=== PATIENT | female | born 1945 | race Caucasian/White ===

== ENCOUNTER 2017-03-31 13:14 | Inpatient (IN) | payer MEDICARE ==
[2017-03-31] VITALS (9 sets, daily range): BP systolic 137–161; BP diastolic 88–105; PULSE 82–107; RESP 15–24; O2SAT 95–100
[~2017-03-31] VITALS: Ht 160 cm; Wt 56.7 kg
--- NOTE | 2017-03-31 13:43 | ED.REPORT ---
HPI-Chest Pain 40 and Over Date of Service Mar 31, 2017 ED Provider: Stephen Shore MD Pt is a 71 year old female presenting to the ED from complaining of SOB. Associated symptoms include chest pressure, vomiting, decreased urination, generalized weakness, insomnia, and slight LE swelling. Denies cough, fever, chills, or LE pain. Symptoms are worsened at night when she lays down in bed. Increased shortness of breath with laying flat. She was recently given an inhaler, Z pack and 3 days of prednisone for restrictive airway disease from . Denies hx of CAD or blood clots. On February 08, the pt drove to [place] and back. She states that the inhaler has helped, but that she does not like using it due to side effects. Nursing Notes Stated Complaint: HEART ISSUES Chief Complaint: General Complaint Nursing Notes Reviewed: Yes Allergies: Coded Allergies: codeine (Verified Allergy, Intermediate, NAUSEA, VOMITING, 03/31/17) latex (Verified Adverse Reaction, Intermediate, RASH, ITCHING, 03/31/17) Scheduled Magnesium Oxide (Magnesium) 500 Mg Capsule 500 MG PO DAILY Multivitamin (Once Daily) 1 Each Tablet 1 EACH PO DAILY General Time Seen by MD: 13:34 Chief Complaint Shortness of breath Hx Obtained From: Patient Arrived By: Walk-in Sudden in Onset?: No Onset Occurred: Onset unknown Symptom Duration: Since onset Quality: Painful, Pressure Severity: Current: Mild Severity: Maximum: Mild Recent Healthcare: No recent hospitalization, Recent doctor visit Similar Sx Previous: No Past Medical History Past Medical History Kidney cancer in remission Osteoporosis Past Surgical History denies Smoking History Former Smoker Ambulatory Status Independent Review of Systems Constitutional: Reports: Weakness - generalized, Denies: Chills, Fever Respiratory: Reports: Shortness of breath, Denies: Non-productive cough Cardiovascular: Reports: Chest pain (Pressure) GI: Reports: Vomiting Musculoskeletal: Reports: Extremity swelling, Denies: Extremity pain Psychiatric: Reports: Insomnia Complete sys rev & neg: except as marked. Female: Reports: Urination decreased Physical Exam Initial Vital Signs Vital Signs (First) Date Time Temp Pulse Resp B/P Pulse Ox O2 Delivery O2 Flow Rate FiO2 03/31/17 13:17 36.7 107 22 161/105 100 Room Air Initial VS: Reviewed Head / Eyes: Atraumatic, Normocephalic, PERRL ENT: Mucous membranes moist, Conjunctiva normal, No scleral icterus Extremities: Vascular intact, Neuro intact, No swelling, No tenderness Skin: Warm, Dry, No cyanosis Neurologic: Alert, Oriented, Nonfocal Psychiatric: Mood/affect normal, Behavior normal, Normal thought content General/Constitutional: Awake, Alert, No acute distress, Well appearing Respiratory / Chest: Atraumatic, No respiratory distress Mild wheeze, slightly coarse breath sounds. Cardiovascular: Heart rate NL, Regular rhythm, Heart sounds NL, No gallop, No murmurs, No rubs Abdomen: Atraumatic, Soft, Non-tender Lower Extremity / Pelvis / MS: Atraumatic, Inspection NL, Full range of motion , No swelling, Non-tender, No deformity, Neurologic intact, Vascular intact, No edema Interpretation & Diagnostics Lab Results Interpretation Result Diagram: 03/31/17 1440 03/31/17 1440 Test 03/31/17 14:40 White Blood Count 5.1th/mm3 (3.8-10.1) Red Blood Count 3.86mil/mm3 (3.90-5.20) Hemoglobin 12.1g/dL (12.0-15.6) Hematocrit 35.1% (35.0-46.0) Mean Corpuscular Volume 90.9fL (81-100) Mean Corpuscular Hemoglobin 31.3pg (27.0-35.0) Mean Corpuscular Hemoglobin Concent 34.5% (32.0-37.0) Red Cell Distribution Width 13.3% (12.3-15.4) Platelet Count 154bil/L (150-400) Neutrophils (%) (Auto) 71.8% (40-74) Lymphocytes (%) (Auto) 21.2% (14-46) Monocytes (%) (Auto) 6.2% (4-12) Eosinophils (%) (Auto) 0.4% (0-5) Basophils (%) (Auto) 0.2% (0-3) D-Dimer < 0.50mg/L FEU (<0.50) Sodium Level 131mEq/L (134-144) Potassium Level 3.6mEq/L (3.5-5.2) Chloride Level 92mEq/L (97-108) Carbon Dioxide Level 21mmol/L (18-29) Blood Urea Nitrogen 17mg/dL (8-27) Creatinine 0.91mg/dL (0.57-1.00) Estimat Glomerular Filtration Rate 88mL/min (>59) Glucose Level 157mg/dL (60-99) Calcium Level 9.5mg/dL (8.5-10.1) Magnesium Level 1.5mg/dL (1.6-2.6) Total Bilirubin 0.8mg/dL (0.0-1.2) Aspartate Amino Transf (AST/SGOT) 83U/L (0-50) Alanine Aminotransferase (ALT/SGPT) 63U/L (0-32) Alkaline Phosphatase 67U/L (25-165) Troponin T < 0.010ug/L (0.0-0.011) Pro-B-Type Natriuretic Peptide 6348pg/mL (0-301) Total Protein 7.5g/dL (6.4-8.4) Albumin 4.1g/dL (3.4-5.0) Hold Ramirez Top Tube Received (Received) ECG Interpretation ECG Interpretation: Sinus tachycardia at 101. Mild left axis deviation. No ST segment elevations. No T wave abnormalities. No prior EKG for comparison. Time: 15:08 Interpreted by: ED physician X-Ray Chest Interpretation Chest Xray Interpretation: IMPRESSION: Blunting of the right costophrenic angle suggestive of scarring versus trace effusion. 9 mm nodular opacity is present within the right base as above. The latter is overall nonspecific and does not appear to be present on 03/15/17 exam. This could represent an area of focal fluid or developing airspace disease. Recommend interval followup is documented resolution. Dictated by: Nataliya Chung M.D. on 03/31/2017 at 14:12 View: AP & lat Interpretation / Wet Read by: Interpret - Radiologist CT Chest Interpretation IMPRESSION: 1. No pulmonary emboli. 2. Small right-sided pleural effusion is of uncertain etiology. 3. Cardiomegaly and diffuse haziness throughout the lungs to be on the basis of pulmonary edema and clinical correlation is recommended. 4. No consolidated pneumonia. 5. Borderline prominent mediastinal lymph nodes. 6. Small hiatal hernia. 7. Left adrenal adenoma. Dictated by: Audie Duff M.D. on 03/31/2017 at 15:31 Study type: CT pulm angiogram Interpretation / Wet Read by: Interpret - Radiologist Re-Eval/Medical Decision Med Decision/Clinical Course In summary, the patient is a 71-year-old female who presents to the emergency department complaining of gradually worsening shortness of breath and chest pressure that is worse with laying flat. She has additionally noticed some mild lower extremity edema. He been treated for reactive airway disease and has a remote smoking history. She did notice that inhalers seem to help somewhat with her symptoms. Here in the emergency department she is afebrile, hemodynamically stable and in no apparent distress. Medications administered: Aspirin. DuoNebs. 40 oral prednisone. 40 IV Lasix Labs: CBC unremarkable D dimer negative. Pro BNP 6348 Mildly elevated transaminases Troponin negative Sodium 131 D dimer negative EKG: Sinus tachycardia at 101. Mild left axis deviation. No ST segment elevations. No T wave abnormalities. No prior EKG for comparison. CT Chest PE: IMPRESSION: 1. No pulmonary emboli. 2. Small right-sided pleural effusion is of uncertain etiology. 3. Cardiomegaly and diffuse haziness throughout the lungs to be on the basis of pulmonary edema and clinical correlation is recommended. 4. No consolidated pneumonia. 5. Borderline prominent mediastinal lymph nodes. 6. Small hiatal hernia. 7. Left adrenal adenoma. Chest x ray shows: Blunting of the right costophrenic angle suggestive of scarring versus trace effusion. 9 mm nodular opacity is present within the right base as above. The latter is overall nonspecific and does not appear to be present on 03/15/17 exam. This could represent an area of focal fluid or developing airspace disease. Recommend interval followup is documented resolution. Overall presentation seems most consistent with new onset congestive heart failure. Given the patient's reaction to bronchodilators suspect there may be some component of underlying reactive airway disease as well. Patient was discussed with admitting hospitalist and admitted for further workup and management. She was transferred in stable condition. Time of Eval: 17:27 Patient Status: Condition improved Re-Evaluation/Progress Note: Discussed plan for admission. Pt understands and agrees with plan. Consultation : Referral / Consult Name: DANY HADDAD DO Consulted With: Hospitalist Call Returned at: 16:43 Machine Tack Puller: Will see patient, Agrees with plan, Accepts admit Counseled Regarding: Diagnosis, Lab results, Need for admission Discharge & Departure Primary Impression: CHF (congestive heart failure) Congestive heart failure type: unspecified congestive heart failure type Congestive heart failure chronicity: acute Qualified Code: I50.9 - Heart failure, unspecified Additional Impressions: Shortness of breath Wheezing Disposition: ADMITTED TO HOSPITAL Discharge Condition All VS Reviewed: Yes Condition: Improved Referrals: Vu Ly DO (PCP) Reji Attestation Portions of this note were transcribed by Casie Giles. I, Dr. Shore personally performed the history, physical exam and medical decision-making; I reviewed and confirmed the accuracy of the information in the transcribed note. Signed by: Reji Krishnan, 03/31/2017. copies to: Vu Ly DO [place], Beck O MD Mar 31, 2017 13:43 CASIE GILES Mar 31, 2017 13:51
[2017-03-31] MEDS ORDERED: predniSONE 20 mg Tablet PO ONE (14:15)
[2017-03-31] MEDS ORDERED: Albuterol-Ipratropium 3 mL Inhalation Solution NEB ONE (14:15)
--- NOTE | 2017-03-31 14:15 | DRSVH ---
PROCEDURE: X-RAY CHEST, TWO VIEWS ([id number]) INDICATIONS: CHEST PAIN TECHNIQUE: 2 views of the chest were acquired. COMPARISON: [facility], CR, CHEST 2VW, 01/28/2010, 11:44. [facility], CR, X R CHEST 2VW, 03/15/2017, 11:39. FINDINGS: Surgical changes and devices: None. Lungs and pleura: 9 mm nodular opacity is present within the right base. There is questionable appear ance of adjacent rib sclerosis. There is blunting of the costophrenic angle. Mediastinum: Mediastinal contours are normal. Heart size is normal. Bones and chest wall: No suspicious bony abnormalities. Soft tissues appear unremarkable. IMPRESSION: Blunting of the right costophrenic angle suggestive of scarring versus trace effusion. 9 mm nodular opacity is present within the right base as above. The latter is overall nonspecific and d oes not appear to be present on 03/15/17 exam. This could represent an area of focal fluid or developin g airspace disease. Recommend interval followup is documented resolution. Dictated by: Nataliya Chung M.D. on 03/31/2017 at 14:12 Approved by: Nataliya Chung M.D. on 03/31/2017 at 14:14
[2017-03-31 14:54] LABS: BASOPHILS % (AUTO) 0.2 % (0-3); EOSINOPHILS % (AUTO) 0.4 % (0-5); MONOCYTES % (AUTO) 6.2 % (4-12); Mean Corpuscular Hemoglobin 31.3 pg (27.0-35.0); Mean Corpuscular Volume 90.9 fL (81-100); NEUTROPHILS % (AUTO) 71.8 % (40-74); Platelet Count 154 bil/L (150-400)
[2017-03-31] MEDS ORDERED: Ondansetron 2 mg/mL 2 mL Inj IVPUSH PRN ×2 (15:30→17:10)
[2017-03-31] MEDS ORDERED: Alum-Mag Hydrox-Simeth 30 mL Suspension PO PRN ×2 (15:30→17:10)
[2017-03-31 15:34] LABS: TROPONIN T < 0.010 ug/L (0.0-0.011)
[2017-03-31 15:38] LABS: Magnesium 1.5 mg/dL (1.6-2.6)
[2017-03-31] MEDS ORDERED: MULT-666 PO (15:42)
[2017-03-31] MEDS ORDERED: MAGN500C4 PO (15:42)
--- NOTE | 2017-03-31 16:37 | DRSVH ---
PROCEDURE: CT ANGIO CHEST PULMONARY EMBOLISM ([id number]) INDICATIONS: assess for PE TECHNIQUE: After the administration of intravenous contrast, 2 mm thick sections acquired from the pulmonary api keiko to the posterior costophrenic angles. 3-dimensional maximum intensity projection (MIP) coronal a nd sagittal reformats were then acquired through the thorax. For radiation dose reduction, the follo wing was used: automated exposure control, adjustment of mA and/or kV according to patient size. COMPARISON: [facility] , CT, CHEST/ABD/PELVIS W/CON ([facility] 09/11/2006, 17:29. FINDINGS: Image quality: Diagnostic Pulmonary arteries: Pulmonary arteries are normal in size, and demonstrate no intraluminal filling d efects to suggest central pulmonary embolism. Lungs and pleura: There is a small right-sided pleural effusion with mild basilar/posterior atelectas is. Mild left lesser costophrenic angle atelectasis also is present. There is diffuse haziness thro ughout the lungs, which may be exaggerated by suboptimal inspiration. Mild bronchial wall thickening involving the bilateral infrahilar regions is noted. There appear to be centrilobular emphysematous changes within the lung apices. There is no lobar consolidation or pneumothorax. No lung masses ev ident. No definite pulmonary nodule is appreciated. However, evaluation for pulmonary nodules on th is exam is suboptimal. Mediastinum: The heart is enlarged. There is no pericardial effusion. Coronary artery atherosclerot ic changes are noted. The thoracic aorta demonstrates atherosclerotic changes without evidence of an eurysm. However, the lumen is not adequately evaluated on this exam. There is no mediastinal mass. Small to moderate sized lymph nodes are seen within the mediastinum with the largest located within the subcarinal region with one lymph node measuring up to approximately 10 mm in short axis (image 59 , series 5). Small hilar lymph nodes are also present. The esophagus is grossly unremarkable. Ther e may be a small hiatal hernia. Bones and chest wall: No suspicious bony lesions. Ribs and thoracic spine appear intact throughout. Age-appropriate degenerative changes of the spine are present. Thyroid gland is not enlarged. No axillary or supraclavicular adenopathy. Abdomen: There is a hypodense nodule evident involving the left adrenal gland, measuring 1.1 x 1.4 cm , which measures approximately 4 Hounsfield units. This has not significantly changed in size since 2006, compatible with a benign process. IMPRESSION: 1. No pulmonary emboli. 2. Small right-sided pleural effusion is of uncertain etiology. 3. Cardiomegaly and diffuse haziness throughout the lungs to be on the basis of pulmonary edema and clinical correlation is recommended. 4. No consolidated pneumonia. 5. Borderline prominent mediastinal lymph nodes. 6. Small hiatal hernia. 7. Left adrenal adenoma. Dictated by: Audie Duff M.D. on 03/31/2017 at 15:31 Approved by: Audie Duff M.D. on 03/31/2017 at 15:36
[2017-03-31] MEDS ORDERED: Furosemide 10 mg/mL 4 mL Inj IVPUSH ONE (16:45)
[2017-03-31] MEDS ORDERED: Senna-Docusate 8.6-50 mg Tablet PO PRN (17:10)
[2017-03-31] MEDS ORDERED: Polyethylene Glycol (PEG) 17 Gm Powder PO PRN (17:10)
[2017-03-31] MEDS ORDERED: Levalbuterol 1.25 mg/0.5mL Inhalation Solution NEB ONE (21:15)
--- NOTE | 2017-03-31 21:26 | PCM.HPMED ---
Subjective Date of Service Mar 31, 2017 Primary Provider: Admitting Physician: Dany Beck DO Primary Care Physician: Vu Ly DO Attending Physician: Dany Beck DO Chief Complaint: Shortness of breath. History of Present Illness: Ms. 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 March 10 she arrived from vacation, traveling by car from [place]. Along the way, roughly March 06 in [facility], she noticed marked shortness of breath from baseline. March 15 she visited the Urgent care and was given prednisone, azithromycin, and albuterol. Her vitals were normal at that time. She felt better within a couple of days. At a 10 day follow up she again began feeling short of breath and was noted to be tachycardic. Over then next couple days she began feeling very thirsty and also noticed a decreased urine output. Overnight last evening, she was very nauseas and vomited her meal. This morning she visited the Urgent care and was advised to visit the ED for "CHF." She reports this is the first time she's felt this way. She reports associated symptoms include chest pressure, vomiting, decreased urination, generalized weakness, insomnia. Denies cough, syncope, fever, chills, or LE pain, diarrhea, dysuria. Symptoms are worsened at night when she lays down in bed. She denies tick bites, but reports many black fly bites, denies sick contacts. In the ED patients vitals: T-36.7, HR-104, RR-20, BP-154/91, 98% RA. CT Angio IMPRESSION: 1. No pulmonary emboli. 2. Small right-sided pleural effusion is of uncertain etiology. 3. Cardiomegaly and diffuse haziness throughout the lungs to be on the basis of pulmonary edema and clinical correlation is recommended. 4. No consolidated pneumonia. 5. Borderline prominent mediastinal lymph nodes. 6. Small hiatal hernia. 7. Left adrenal adenoma. CXR - IMPRESSION: Blunting of the right costophrenic angle suggestive of scarring versus trace effusion. 9 mm nodular opacity is present within the right base as above. The latter is overall nonspecific and does not appear to be present on 03/15/17 exam. This could represent an area of focal fluid or developing airspace disease. Recommend interval followup is documented resolution. EKG reviewed - Sinus tachycardia 101, LVH, no ST elevations/depressions. In the ED patient received: Albuterol, Lasix 40 mg IV, aspirin, Review of Systems: A comprehensive review of systems was conducted with the patient and found to be negative except as above in the History of Present Illness. Allergies Coded Allergies: codeine (Verified Allergy, Intermediate, NAUSEA, VOMITING, 03/31/17) latex (Verified Adverse Reaction, Intermediate, RASH, ITCHING, 03/31/17) Home Medications Magnesium Oxide (Magnesium) 500 Mg Capsule 500 MG PO DAILY Multivitamin (Once Daily) 1 Each Tablet 1 EACH PO DAILY PMH RCC with right Nephrectomy in 2006. Osteoporosis Hepatitis C from blood transfusion in 1978 after complicated hysterectomy. Surgical History Complicated Hysterectomy in 1978. Family History Mother - Metastatic Colon cancer, coronary artery disease. Father - CHF Brother - Brain Cancer. Social History Hx Alcohol Use: Yes Alcoholic Drinks Per Day: NIGHTLY-VODKA&TWILA KHAI-2 DRINKS PER NIGHT Hx Substance Use: No Hx Tobacco Use: Yes (quit 6 mo ago, 1/2 pack per day for 30 years. ) Smoking Status: Former Smoker Years of Smokin Living Arrangement: with Family Exam Vital Signs Vital Sign - Last Date Time Temp Pulse Resp B/P Pulse Ox O2 Delivery O2 Flow Rate FiO2 03/31/17 19:36 104 20 154/91 98 Room Air 03/31/17 19:26 36.7 Exam General: Lady sitting in bed in no acute distress, mildly anxious, appearing younger than stated age, well-developed, well-nourished, appropriately interactive HEENT: Normocephalic, atraumatic. External ears without defect. Pupils equal, round, and reactive to light and accommodation. Anicteric sclerae, moist conjunctivae, and no lid lag. Oropharynx free of erythema and cobble stoning with moist mucosa. Neck: Supple with full range of motion. No jugular venous distension. No bruits. No lymphadenopathy or thyromegaly. Cardiovascular: Tachycardic rate and regular rhythm with no murmurs, rubs, or gallops appreciated Pulmonary: Clear to auscultation bilaterally with no crackles, wheezes, or rhonchi. Normal respiratory effort with no use of accessory muscles. GI: Bowel tones present. Soft, nontender, nondistended. No hepatosplenomegaly or masses appreciated. Extremities: No clubbing, cyanosis, edema, or lymphadenopathy appreciated. Skin: Normal temperature, turgor, and texture; no rash, ulcers, or subcutaneous nodules appreciated. Neurological: Cranial nerves grossly intact. Normal muscle strength, tone, and bulk. Reflexes, coordination, and sensory function within normal limits. No known gait impairment. Psychiatric: Normal mood and affect. Alert and oriented to person, place, and time. Lymph: no cervical or supraclavicular lymphadenopathy on exam MSK: no joint edema, erythema, or increased warmth Lab and Diagnostics Result Diagram: 03/31/17 1440 03/31/17 1440 X-Rays, CTs and MRIs CT ANGIO CHEST PULMONARY EMBOLISM IMPRESSION: 1. No pulmonary emboli. 2. Small right-sided pleural effusion is of uncertain etiology. 3. Cardiomegaly and diffuse haziness throughout the lungs to be on the basis of pulmonary edema and clinical correlation is recommended. 4. No consolidated pneumonia. 5. Borderline prominent mediastinal lymph nodes. 6. Small hiatal hernia. 7. Left adrenal adenoma. Dictated by: Audie Duff M.D. on 03/31/2017 at 15:31 X-RAY CHEST, TWO VIEWS IMPRESSION: Blunting of the right costophrenic angle suggestive of scarring versus trace effusion. 9 mm nodular opacity is present within the right base as above. The latter is overall nonspecific and does not appear to be present on 03/15/17 exam. This could represent an area of focal fluid or developing airspace disease. Recommend interval followup is documented resolution. Dictated by: Nataliya Chung M.D. on 03/31/2017 at 14:12 Assessment & Plan Ms. 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 She is admitted for possible SOB and chest pressure. Shortness of breath. Present on admission. Active. - Possibly 2nd to COPD exacerbation vs RAD's, vs CHF, less likely pneumonia. - CT Angio as above. - BNP elevatd 6k. - EKG reviewed, sinus tachycardia, LVH, no ST elevations/depression. - Tele on. - ECHO ordered. - Procalcitonin ordered. - Patient received 40 IV lasix in the ED. - Troponins initially negative, trend x3 Q6H. - 40 mg Prednisone daily for 5 days. - Xopenex nebs prn. Sinus Tachycardia. Present on admission. Active. - Likely 2nd to Albuterol. will d/c and start Xopenex nebs. - Tele on. - TSH wnl. - UA w/ rflx cx ordered. Right sided pleural effusion. Present on admission. Active. - Possibly 2nd to residual right nephrectomy 2006 vs pneumonia vs CHF Elevated Transaminases, - History of Hep C from blood transfusion. - Hepatitis panel ordered. HIV ordered. Hypomagnesemia - 2G magnesium ordered. Acetaminophen for mild pain when necessary. Bowel regimen Senna and MiraLAX scheduled and PRN. Zofran when necessary for nausea and vomiting. SubQ heparin held for now. SCDs in place. High-risk medications: NONE. Patient Status: Patient is admitted under inpatient status with expected length of stay greater than 2 midnights due to severity of presenting symptoms, risk of adverse event, and complexity of treatment plan. Pain Evaluation: Adequate Pain Control Resuscitation Status: CPR: Attempt Resuscitation Attending Statement The patient was seen and examined together with house staff on 03/31/2017 and I agree with the history, exam and plan as outlined in the note above. DANY BECK DO Mar 31, 2017 21:26 [place] DO Apr 01, 2017 03:27
[2017-03-31] MEDS ORDERED: Magnesium Sulf 2 Gm/50mL Water 2 GM in IV Premix 1 EACH IV ONE (22:15)
[2017-03-31] MEDS: predniSONE 20 mg Tablet PO SCH (22:20)
[2017-04-01] VITALS (12 sets, daily range): BP systolic 132–150; BP diastolic 85–99; PULSE 95–102; RESP 16–20; O2SAT 95–99
[2017-04-01] MEDS: Sodium Chloride LOK Flush 10 mL Syringe IVFLUSH SCH ×3 (00:30→16:46)
[2017-04-01 07:14] LABS: Hepatitis A Antibody IgM Negative (Negative); Hepatitis B Core Antibody IgM Negative (Negative)
[2017-04-01] MEDS: predniSONE 20 mg Tablet PO SCH (08:59)
[2017-04-01] MEDS: Ipratropium 0.02% 0.5 mg/2.5 mL Inhalation Solution NEB SCH ×4 (09:17→20:30)
--- NOTE | 2017-04-01 09:36 | DRSVH ---
[facility] [address] [place] [address] Echocardiogram Report Name: EBER CALDERON te: 04/01/2017 Height: 63 in Hospital Exam Location: [facility] Weight: 122 lb Gender: Female BSA: 1.6 m2 : 1945 Age: 71 yrs BP: 150/99 mmHg Reason For Study: SOB Ordering Physician: Performed By: Elie Hanson Referring Physician: DAYN HADDAD Interpretation Summary Left ventricular systolic function is severely reduced with the ejection fraction estimated to be 20-25% with severe global hypokinesis but no obvious focal wall motion abnormalities. The left ventricle is mildly dilated with wall thickness that is borderline increased and diastolic parameters suggesting a restrictive filling pattern of the left ventricle consistent with significantly elevated filling pressures. The right ventricle is mildly dilated and right ventricular systolic function is moderate to severely reduced. The right ventricular systolic pressure is estimated at 41 mmHg assuming a right atrial pressure of 15 mm Hg. The left atrium is severely dilated and the right atrium is moderately dilated. There is moderate mitral regurgitation and moderate tricuspid regurgitation. Procedure: A two-dimensional transthoracic echocardiogram with color flow and Doppler was performed. The study quality was technically adequate. There is no prior echocardiogram noted for this patient. The patient was in normal sinus rhythm during the exam. The heart rate ranged between 91-98 bpm during the study. Some EKG tracings were unreliable due to patient movement. Left Ventricle: The left ventricle is mildly dilated. Left ventricular wall thickness is borderline increased. Left ventricular systolic function is severely reduced. The ejection fraction is estimated to be 20-25%. There is severe global hypokinesis of the left ventricle. There are no focal wall motion abnormalities. Assessment of diastolic parameters indicates a restrictive filling pattern of the left ventricle consistent with significantly elevated filling pressures. Right Ventricle: The right ventricle is mildly dilated. Right ventricular systolic function is moderate to severely reduced. Atria: The left atrium is severely dilated. The right atrium is moderately dilated. The interatrial septum is intact with no evidence for an atrial septal defect. Mitral Valve: There is mild mitral annular calcification. The mitral valve leaflets appear borderline thickened, but open well. There is moderate mitral regurgitation. Aortic Valve: The aortic valve is trileaflet. The aortic valve is slightly calcified. The aortic valve opens well. No aortic regurgitation is present. Tricuspid Valve: The tricuspid valve is normal. There is moderate tricuspid regurgitation. The right ventricular systolic pressure is estimated at 41 mmHg assuming a right atrial pressure of 15 mm Hg. Pulmonic Valve: The pulmonic valve is not well visualized. Great Vessels: The aortic root is normal size. The dimensions of the ascending aorta are normal. The pulmonary artery is not well visualized, but is probably normal size. The IVC is dilated (diameter is greater than 2.1 cm) and it collapses less than 50% with a sniff. This suggests a high right atrial pressure of 15 mm Hg. Pericardium/ Pleura There is no pericardial effusion. There is no pleural effusion. MMode/2D Measurements & Calculations LVIDd: 5.9 cm RA long axis LVOT diam: 1.8 cm LVIDs: 5.1 cm LA A2 area: 22.0 cm AoV Opening FS: 12.8 % LA A4 area: 26.8 cm RA area EPSS: 1.9 cm LA length (vol) Ao root diam IVSd: 0.99 cm : 20.7 cm LVPWd: 1.0 cm LA vol: 89.9 ml RA vol asc Aorta Diam LA vol index : 72.9 ml RA Ao Arch Diam (Prox : 46.5 mm2 Trans): 2.8 cm IVC diam: 2.8 cm LV blas. diameter/BSA LV sys. diameter/BSA RVD1 (basal) TAPSE: 1.0 cm (cm/m^2): 3.8 (cm/m^2): 3.3 Doppler Measurements & Calculations Ao V2 max: 90.5 cm/sec MV E max jamie MV E/A: 2.9 TR max jamie Ao max P.3 mmHg : 82.9 cm/sec : 252.6 cm/sec Ao mean P.0 mmHg MV A max jamie TR max PG LVOT Max Jamie : 28.6 cm/sec : 25.5 mmHg : 62.5 cm/sec PA V2 max : 41.4 cm/sec MIRZA(I,D): 1.7 cm PA mean PG sev ratio: 0.67 : 0.39 mmHg MV dec time: 0.10 sec Ao V2 mean LV V1 max PG PA V2 mean : 68.0 cm/sec : 29.8 cm/sec Ao V2 VTI: 14.6 cm LV V1 VTI PA pr(Accel) : 9.8 cm : 12.0 mmHg MIRZA(V,D): 1.7 cm2 MIRZA indexed to BSA (cm^2/m^2): 1.1 Reading Physician:09:34 AM
[2017-04-01] MEDS: Furosemide 10 mg/mL 4 mL Inj IVPUSH SCH (10:34)
--- NOTE | 2017-04-01 15:54 | NUR ---
NUTRITION EDUCATION FOR POSSIBLE CHF. Provided nutrition education for low sodium restriction in the event the pt. is diagnosed with CHF. She already follows a salt restricted diet; expect excellent compliance.
--- NOTE | 2017-04-01 17:59 | PCM.PNMED ---
Subjective Date of Service Apr 01, 2017 Subjective Patient was seen and examined at bedside today. Patient denies any chest pain, shortness of breath, nausea, vomiting, diarrhea. The patient states that she is feeling much improved. Overnight events: None Exam Vital Signs Vital Sign - Last Date Time Temp Pulse Resp B/P Pulse Ox O2 Delivery O2 Flow Rate FiO2 04/01/17 17:39 36.5 98 18 144/95 99 Room Air Intake and Output 03/31/17 03/31/17 04/01/17 Cumulative From/Thru 15:00 23:00 07:00 03/31/17 13:17 - 04/01/17 05:07 Intake Total 400 ml 400 ml Output Total 1400 ml 1400 ml Balance -1000 ml -1000 ml Intake Oral 400 ml 400 ml Output Urine Total 1400 ml 1400 ml # Bowel Movements 0 0 Exam Physical Exam: GEN: Patient was awake, alert, responding appropriately to questions HEENT: Pupils equal round and reactive to light, extraocular eye muscles intact , Neck soft supple, trachea midline, nomocephalic/atraumatic CV: +S1/S2, regular rate and rhythm, no murmurs auscultated Respiratory: Coarse breath sounds, Positive for wheezes, no rales, rhonchi GI: +bowel sounds x4, soft, compressible, nontender to palpation EXT: no clubbing, cyanosis, edema Neuro: Cranial nerves II-XII grossly intact Psych: mood and affect were appropriate IVs and Medications Medications Reviewed: Medications were reviewed in detail Lab and Diagnostics Result Diagram: 03/31/17 1440 03/31/17 1440 X-Rays, CTs and MRIs CT ANGIO CHEST PULMONARY EMBOLISM IMPRESSION: 1. No pulmonary emboli. 2. Small right-sided pleural effusion is of uncertain etiology. 3. Cardiomegaly and diffuse haziness throughout the lungs to be on the basis of pulmonary edema and clinical correlation is recommended. 4. No consolidated pneumonia. 5. Borderline prominent mediastinal lymph nodes. 6. Small hiatal hernia. 7. Left adrenal adenoma. Dictated by: Audie Duff M.D. on 03/31/2017 at 15:31 X-RAY CHEST, TWO VIEWS IMPRESSION: Blunting of the right costophrenic angle suggestive of scarring versus trace effusion. 9 mm nodular opacity is present within the right base as above. The latter is overall nonspecific and does not appear to be present on 03/15/17 exam. This could represent an area of focal fluid or developing airspace disease. Recommend interval followup is documented resolution. Dictated by: Nataliya Chung M.D. on 03/31/2017 at 14:12 Assessment & Plan Ms. Kamille Stevens is a 71 year old lady with a past history of RCC s/p right nephrectomy in 2006, untreated hepatitis C likely from blood transfusion 1978, benign adrenal tumor on the left side, and 30 year tobacco use at 1/2 pack per day, who presents to the [facility] Emergency Department with a several week history of shortness of breath, dyspnea on exertion, wheezing and decreased energy. She is admitted for possible SOB and chest pressure. Shortness of breath most likely secondary to systolic CHF exacerbation acute new onset. Present on admission. Active. -Troponins trended negative 2 -BNP elevated at 6348 on admission -Continue 40 of Lasix IV push daily -Chest x-ray shows right-sided pleural effusion -Continue telemetry -Echo shows an EF of 20-25% with severe global hypokinesis - EKG reviewed, sinus tachycardia, LVH, no ST elevations/depression. -Start carvedilol 3.125 mg twice a day -Consult cardiology (Dr. Helm) COPD exacerbation vs RAD's, vs CHF, less likely pneumonia. - CT Angio negative for PE - Procalcitonin mildly elevated at 0.12 - 40 mg Prednisone daily for 5 days. -Azithromycin 500 mg by mouth daily - Xopenex nebs prn. Sinus Tachycardia. Present on admission. Active. - Continue Xopenex nebs when necessary - Tele on. - TSH 0.630 within normal limits Right sided pleural effusion. Present on admission. Active. - Possibly 2nd to residual right nephrectomy 2006 vs pneumonia vs CHF Elevated Transaminases, - History of Hep C from blood transfusion. - Hepatitis panel ordered. HIV ordered. Hypomagnesemia - 2G magnesium ordered. Acetaminophen for mild pain when necessary. Bowel regimen Senna and MiraLAX scheduled and PRN. Zofran when necessary for nausea and vomiting. SubQ heparin held for now. SCDs in place. High-risk medications: NONE. Disposition: The patient has been diagnosed with a new onset of systolic CHF. Her EF is now 20-25% who consult cardiology to give their opinion for further medical management. Will start patient on a beta tamara at this time and will allow cardiology to make the recommendations and changes as needed. VTE Mechanical Devices: Intermittant Pneumatic CD Resuscitation Status: CPR: Attempt Resuscitation Antonieta Vale DO Apr 01, 2017 17:59
--- NOTE | 2017-04-01 18:29 | NUR ---
Activity/SOB Pt. has been active today, spending most of the day out of bed and walking short distances in the hallway. Reports very mild SOB with exertion. She was anxious this morning about staying the night, but I was able to sit and explain things to her and this seemed to help. Lung sounds are clear, and she has been receiving scheduled breathing treatments.
--- NOTE | 2017-04-01 19:19 | NUR ---
ERIN explained and signed. Copy of KHAN given to pt.
[2017-04-02] VITALS (17 sets, daily range): BP systolic 78–124; BP diastolic 57–87; PULSE 64–96; RESP 18–22; O2SAT 95–98
[2017-04-02] MEDS: Sodium Chloride LOK Flush 10 mL Syringe IVFLUSH SCH ×4 (00:42→15:48)
[2017-04-02] MEDS: Ipratropium 0.02% 0.5 mg/2.5 mL Inhalation Solution NEB SCH ×2 (03:12→07:27)
[2017-04-02 06:42] LABS: BASOPHILS % (AUTO) 0.1 % (0-3); EOSINOPHILS % (AUTO) 0.3 % (0-5); MONOCYTES % (AUTO) 7.5 % (4-12); Mean Corpuscular Hemoglobin 30.8 pg (27.0-35.0); Mean Corpuscular Volume 91.6 fL (81-100); NEUTROPHILS % (AUTO) 68.1 % (40-74); Platelet Count 148 bil/L (150-400)
[2017-04-02] MEDS ORDERED: KCl 40 mEq/D5W 500 mL 40 MEQ in IV Premix 1 EACH IV ONE (08:30)
[2017-04-02] MEDS ORDERED: Potassium Chloride 20 mEq SR Tablet PO ONE (08:30)
[2017-04-02] MEDS: predniSONE 20 mg Tablet PO SCH (08:42)
[2017-04-02] MEDS: Furosemide 10 mg/mL 4 mL Inj IVPUSH SCH (08:42)
[2017-04-02 12:14] LABS: Unsaturated Iron Binding 354.3 ug/dL
[2017-04-02] MEDS ORDERED: Ipratropium 0.02% 0.5 mg/2.5 mL Inhalation Solution NEB PRN (12:40)
--- NOTE | 2017-04-02 15:50 | PCM.PNMED ---
Subjective Date of Service Apr 02, 2017 Subjective Patient was seen and examined at bedside today. Patient denies any chest pain, nausea, vomiting, diarrhea. Overnight events: Patient states that she was unable to sleep very well in the evening secondary to shortness of breath Exam Vital Signs Vital Sign - Last Date Time Temp Pulse Resp B/P Pulse Ox O2 Delivery O2 Flow Rate FiO2 04/02/17 13:10 75 20 85/63 98 Nasal Cannula 2.00 04/02/17 12:15 36.6 Intake and Output 04/01/17 04/01/17 04/02/17 Cumulative From/Thru 15:00 23:00 07:00 03/31/17 13:17 - 04/02/17 06:50 Intake Total 830 ml 750 ml 1980 ml Output Total 825 ml 400 ml 2625 ml Balance 5 ml 350 ml -645 ml Intake Oral 800 ml 750 ml 1950 ml IV Total 30 ml 30 ml Output Urine Total 825 ml 400 ml 2625 ml # Bowel Movements 0 0 Exam Physical Exam: GEN: Patient was awake, alert, responding appropriately to questions HEENT: Pupils equal round and reactive to light, extraocular eye muscles intact , Neck soft supple, trachea midline, nomocephalic/atraumatic CV: +S1/S2, regular rate and rhythm, no murmurs auscultated Respiratory: Coarse breath sounds no wheezes, rales, rhonchi GI: +bowel sounds x4, soft, compressible, nontender to palpation EXT: no clubbing, cyanosis, edema Neuro: Cranial nerves II-XII grossly intact Psych: mood and affect were appropriate IVs and Medications Medications Reviewed: Medications were reviewed in detail Lab and Diagnostics Result Diagram: 04/02/17 0600 04/02/17 0600 X-Rays, CTs and MRIs CT ANGIO CHEST PULMONARY EMBOLISM IMPRESSION: 1. No pulmonary emboli. 2. Small right-sided pleural effusion is of uncertain etiology. 3. Cardiomegaly and diffuse haziness throughout the lungs to be on the basis of pulmonary edema and clinical correlation is recommended. 4. No consolidated pneumonia. 5. Borderline prominent mediastinal lymph nodes. 6. Small hiatal hernia. 7. Left adrenal adenoma. Dictated by: Audie Duff M.D. on 03/31/2017 at 15:31 X-RAY CHEST, TWO VIEWS IMPRESSION: Blunting of the right costophrenic angle suggestive of scarring versus trace effusion. 9 mm nodular opacity is present within the right base as above. The latter is overall nonspecific and does not appear to be present on 03/15/17 exam. This could represent an area of focal fluid or developing airspace disease. Recommend interval followup is documented resolution. Dictated by: Nataliya Chung M.D. on 03/31/2017 at 14:12 Assessment & Plan Ms. Kamille Stevens is a 71 year old lady with a past history of RCC s/p right nephrectomy in 2006, untreated hepatitis C likely from blood transfusion 1978, benign adrenal tumor on the left side, and 30 year tobacco use at 1/2 pack per day, who presents to the [facility] Emergency Department with a several week history of shortness of breath, dyspnea on exertion, wheezing and decreased energy. She is admitted for possible SOB and chest pressure. Shortness of breath most likely secondary to systolic CHF exacerbation acute new onset. Present on admission. Active. -Troponins trended negative 2 -BNP elevated at 6348 on admission -Continue 40 of Lasix IV push daily -Chest x-ray shows right-sided pleural effusion -Continue telemetry -Echo shows an EF of 20-25% with severe global hypokinesis - EKG reviewed, sinus tachycardia, LVH, no ST elevations/depression. -Continue carvedilol 3.125 mg twice a day -Decreased lisinopril 5 mg daily to 2.5 mg daily -Patient is scheduled for a cath tomorrow morning dose of lisinopril -Consult cardiology (Dr. Helm) COPD exacerbation vs RAD's, vs CHF, less likely pneumonia. - CT Angio negative for PE - Procalcitonin mildly elevated at 0.12 - 40 mg Prednisone daily for 5 days. -Azithromycin 500 mg by mouth daily - Xopenex nebs prn. Sinus Tachycardia. Present on admission. Active. - Continue Xopenex nebs when necessary - Tele on. - TSH 0.630 within normal limits Right sided pleural effusion. Present on admission. Active. - Possibly 2nd to residual right nephrectomy 2006 vs pneumonia vs CHF Elevated Transaminases, present on admission chronic - History of Hep C from blood transfusion. - Hepatitis panel ordered. HIV ordered. Hypomagnesemia, present on admission, resolved - 2G magnesium (03/31/17) -Currently stable magnesium is 2.0 Hypokalemia, active -40 mEq of potassium IV -40 mEq of potassium by mouth -Follow-up labs in the morning Acetaminophen for mild pain when necessary. Bowel regimen Senna and MiraLAX scheduled and PRN. Zofran when necessary for nausea and vomiting. SubQ heparin held for now. SCDs in place. High-risk medications: NONE. Disposition: The patient currently has CHF with an EF of 20-25%. The patient is starting to run a little hypotensive so her lisinopril 5 mg daily will be decreased to 2.5 mg daily. At this time the patient will have her lisinopril held in the morning as requested by cardiology. The patient will have a cardiac cath in the morning and will be made nothing by mouth after midnight. This case was discussed extensively with both Drs. Helm and Uriel. VTE Mechanical Devices: Intermittant Pneumatic CD Resuscitation Status: CPR: Attempt Resuscitation Antonieta Vale DO Apr 02, 2017 15:50
--- NOTE | 2017-04-02 16:01 | NUR ---
Changed to IP status, [facility] signed
--- NOTE | 2017-04-02 16:05 | CONS ---
[address] [address] CONSULTATION REPORT PATIENT: EBER CALDERON : 1945 MR#: [id number] ADMIT: 03/31/2017 JOB ID: [id number] DATE OF SERVICE: 04/02/2017 IDENTIFICATION: Dr. Vale has asked that I consult on this 71-year-old female with a new-onset cardiomyopathy. HISTORY: The patient denies any previous cardiac history and has enjoyed relatively good health with the exception of a right renal cell carcinoma requiring a right nephrectomy in 2006. She generally has been feeling well up until one month when she was traveling by car on vacation and noted progressive dyspnea. Upon her return, she presented to urgent care where she was felt to have a bronchitis. Was given prednisone and antibiotic therapy with some improvement in her symptoms but then returned several weeks ago and has been progressive since then, now with dyspnea while supine. It prevents her from sleeping. With this, she has had a mild chest pressure while supine that is relieved by sitting upright. Because of the return of her symptoms, she presented back to urgent care where she was felt to be volume overloaded and was sent to the emergency department where she was found to have a blood pressure of 154/91 and a heart rate of 104. A CT angiogram showed no evidence for pulmonary embolism but did suggest probable pulmonary edema with some small effusions. LABORATORY: Was notable for a sodium of 131, with a potassium of 3.6, and a magnesium of 1.5 and a glucose of 157 with moderately elevated LFTs and a proBNP of 6318. She was subsequently admitted and was diuresed. An echocardiogram from yesterday showed mild left ventricular enlargement with severe global hypokinesis with an ejection fraction of 20% to 25% without focal abnormality with probable increased filling pressures. The right ventricle was mildly enlarged to moderate to severely hypokinetic. PA pressure was estimated at 41 with a CVP of 15 mmHg. There was moderate mitral and tricuspid regurgitation. Since starting the IV Lasix, she has noted some improvement in her dyspnea while upright but continues to have some dyspnea while supine. She was started on carvedilol 3.125 mg daily and today was started on REYNA inhibitor. She denies any sense of any notable palpitations and has had no significant lightheadedness. She denies any anginal-type discomfort or any significant pedal edema. She has had no myalgias or any recent fevers. CARDIAC RISK FACTORS: No history of diabetes although her blood sugar was 157 on admission. No history of hypertension up until this admission. She smoked half a pack per day for 30 years and states that she stopped six months ago, although on further questioning, continues to smoke occasionally. Her mother required stents in her 60s and a brother had a cardiomyopathy in his 40s. She denies any history of hyperlipidemia. PAST MEDICAL HISTORY: Notable for renal cell carcinoma with right nephrectomy in 2006. She has a history of hepatitis C from a blood transfusion. She is status post hysterectomy and has a diagnosis of osteoporosis. HOME MEDICATIONS: Only magnesium oxide and a multivitamin. ALLERGIES: Reports allergies to: 1. CODEINE. 2. LATEX. With itching and rash. FAMILY HISTORY: As above. 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 She admits to 3 ounces of vodka per night. REVIEW OF SYSTEMS: A complete review is performed and is notable for the absence of any recent fevers or chills although she has had some mild cold intolerance that has now resolved. She denies any significant weight change or vision change. No ENT problem. She has had a cough for the last month which has been nonproductive but denies any hemoptysis. No history of any peptic ulcer disease or GI blood loss. Denies any genitourinary complaints or hematuria. No unusual musculoskeletal complaints or any history of any neurologic issues. Denies any thyroid or bleeding disorder. No history of any anxiety or depression. PHYSICAL EXAMINATION: Pleasant, healthy-appearing, white female, in no distress. HR : 81. BP 124/85. O2 saturation 98% on room air. She had a diuresis of around 1 L yesterday although her weight is actually up 1 kg from yesterday. Skin: Warm and dry. HEENT: EOMI without arcus. She has a denture plate above. Lungs: Crackles at both bases but otherwise without any rales or wheeze. CV: Nonpalpable PMI with a regular rate and rhythm with distant heart tones but no appreciable murmurs or gallops. JVP appears to be around 7-8 cm. Carotid and femoral pulses were all 1+ but without any appreciable bruit. Dorsalis pedis is 2+ on the right, 1+ on the left. Posterior tib pulses are nonpalpable. Abdomen: Soft, nondistended, nontender, without any palpable masses or hepatosplenomegaly. Normal bowel tones are present without bruits. Extremities: Warm without any clubbing, cyanosis, or edema. Neuro: Moves all four extremities. Psych: Awake, alert, and oriented. Laboratory: Hematocrit this morning is 32% down from 35%. White count remains normal. Potassium 3.3 with a sodium of 133. BUN is 37 with a creatinine of 1.1, up from 17 and 0.9 previously. Glucose is 177. AST has improved from 83 down to 58 and ALT has improved from 63 down to 46. Troponins have remained completely normal. TSH was normal at 0.63. Chest x-ray: Suggests a small pleural effusion but otherwise clear. ECG : Shows sinus tachycardia, 101 bpm with left atrial enlargement and some nonspecific repolarization abnormalities. IMPRESSION: 1. New onset severe dilated cardiomyopathy of uncertain etiology. She clearly has some volume overload. Given the biventricular nature of her dysfunction, my suspicion is relatively low that this reflects an ischemic cardiomyopathy although this cannot be entirely excluded and I think that a cardiac catheterization is indicated to exclude underlying coronary artery disease. I will have Dr. Trevino consulted to see if he can perform this tomorrow. Other potential etiologies would be more significant alcohol consumption than admitted to. Alternatively, she could have a viral cardiomyopathy or familial cardiomyopathy given her brother's family history. At this point, I would continue with medical therapy which would include continued diuresis and institution of carvedilol and REYNA inhibitor. These will need to be incrementally advanced as an outpatient over time. If there is no significant improvement in her left ventricular systolic function after optimal medical therapy, then consideration may need to be given to an implantable defibrillator. Iron studies will be obtained to exclude hemochromatosis and I have asked her to abstain from alcohol. 2. Borderline diabetes. Her blood sugars have been elevated somewhat here. Management per the hospitalist. 3. Abnormal liver function test. I suspect this is more of a reflection of hepatic congestion. 4. History of renal cell carcinoma. 5. History of tobacco addiction. She is counseled to stop. PLAN: 1. Continue with current diuresis and institution of carvedilol and REYNA inhibitor with upward titration of the latter two as her heart rate and blood pressure allow. 2. Continue to track electrolytes and renal function closely. 3. Consult Dr. Trevino for cardiac catheterization tomorrow to exclude underlying coronary artery disease. 4. Once she is on optimal medical therapy and if her cardiac catheterization is benign, then she can be discharged with followup in my office in several weeks with incremental advancement of her REYNA inhibitor and beta blockade. I spent 1 hour and 40 minutes reviewing the patient's medical record, examining the patient, reviewing her echocardiogram, answering her and her 's questions.
--- NOTE | 2017-04-02 18:41 | NUR ---
Hypotension Pt. felt light headed today at 1215 while sitting in a chair. Vitals showed BP of 78/57. HR. 64. Other vitals stable. Assisted to supine position in bed which helped her lightheadedness. Follow up BPs steadily increased to 91/59 over the next hour or so. Other vitals remained stable. 2L NC placed on for comfort. This was discontinued at 1330. Pt. encouraged to use call light for assistance and not to get up without nursing help. Pt. states understanding.
[2017-04-03] VITALS (22 sets, daily range): BP systolic 93–128; BP diastolic 59–86; PULSE 73–88; RESP 11–22; O2SAT 94–100
[2017-04-03] MEDS: Sodium Chloride LOK Flush 10 mL Syringe IVFLUSH SCH ×7 (00:30→20:24)
--- NOTE | 2017-04-03 05:25 | NUR ---
NOC Activity Pt has been pleasant and cooperative with care. Has been put NPO since midnight for possible procedure cardiac cath intervention. Denies chest pain. Reports of having sob with activity. Breathing Tx PRN. Orthostatic VS noted no significant change. Hourly rounding done and pt has slept most of the night.
[2017-04-03 05:37] LABS: BASOPHILS % (AUTO) 0 % (0-3); EOSINOPHILS % (AUTO) 0.2 % (0-5); MONOCYTES % (AUTO) 8.6 % (4-12); Mean Corpuscular Hemoglobin 30.6 pg (27.0-35.0); NEUTROPHILS % (AUTO) 68.1 % (40-74); Platelet Count 155 bil/L (150-400)
[2017-04-03] MEDS ORDERED: Sodium Acetate Inj 150 MEQ in Dextrose 5% 1,000 ML IV ONE (06:00)
[2017-04-03 06:10] LABS: TROPONIN T 0.01 ug/L (0.0-0.011)
[2017-04-03 06:21] LABS: Magnesium 1.9 mg/dL (1.6-2.6)
[2017-04-03] MEDS ORDERED: Heparin 1,000 Unit/mL 10 mL Inj ONE (09:42)
[2017-04-03] MEDS ORDERED: Heparin 1,000 Units/500 mL NS Premix IV ONE (09:42)
[2017-04-03] MEDS ORDERED: Heparin 10,000 Unit/1,000 mL NS Premix IV ONE ×2 (09:43→10:11)
[2017-04-03] MEDS ORDERED: fentaNYL-PF 50 mCg/mL 2 mL Inj ONE (09:43)
[2017-04-03] MEDS ORDERED: 0.9% Sodium Chloride 1,000 ML ONE (09:43)
[2017-04-03] MEDS ORDERED: Nitroglycerin 50,000 mcg/250 mL D5W Premix IV ONE (09:44)
[2017-04-03] MEDS ORDERED: 0.9% Sodium Chloride 50 ML ONE (09:44)
--- NOTE | 2017-04-03 10:10 | NUR ---
FROM GROUND WIRER. SEE FLOW SHEET
--- NOTE | 2017-04-03 10:10 | NUR ---
POST PROCEDURE NOTE RETURNED FROM PATIENT ACCESS COORDINATOR. SEE FLOW SHEET
--- NOTE | 2017-04-03 11:47 | NUR ---
Social Work-initial assessment/readiness for discharge/ multidisciplinary rounds: Data:See initial assessment. Pt is 71 y/o female who was admitted on 03/31/17 for shortness of breath per H&P. Pt's insurance is [employer] and PCP is Vu Ly MD. EMR reviewed. Pt's readmission score is 0. SW met with pt and Isacc at bedside, SW role explained. Pt is alert and oriented x3. Pt resides at home with her where she remains independent with ADLS. Pt drives and does not use any DME. Pt has no HH or SNF history. Pt has no intermediate care insurance or VA benefits. SW discussed DPOA/ advanced directive,paperwork has been provided to pt. Pt discussed in multidisciplinary rounds, no concerns from MD wastewater treatment plant instructor regarding pt's capacity for self care, per RN pt has been up independent in her room. Pt to go to the laborer golf [place] today. SW provided pt with discharge planning checklist and encouraged her to call with any questions,phone number provided on white board in room. Pt's to provide transport home. No anticipated discharge needs. SW will continue to follow if needs arise. Assessment:pt who is independent at baseline. Plan:Pt to discharge home when medically stable via POV. No anticipated discharge needs. SW will continue to follow if needs arise. VIOLA Olmstead Addendum: 04/03/17 at 1153 by JUANITA BERNAL SS Amended: Links added.
--- NOTE | 2017-04-03 13:43 | NUR ---
TRANSFERED BACK TO [facility] [place]. REPORT GIVEN
--- NOTE | 2017-04-03 13:58 | CS94 ---
[address] [address] DIAGNOSTIC CARDIAC CATHETERIZATION PATIENT: EBER CALDERON : [birth year] MR#: [id number] ADMIT: 03/31/2017 JOB ID: [id number] PROCEDURE NOTE--CARDIAC CATHETERIZATION LABORATORY: DATE OF PROCEDURE: Monday, April 03, 2017. [employer] BAND WRAPPER: Enmanuel Trevino MD. PROCEDURES: 1. Coronary Angiogram. 2. Left heart catheterization (LHC)--Pressure Measurement. 3. Right Heart Catheterization (RHC). CLINICAL DETAILS: This 71-year-old woman presents to the Cardiac Catheterization Laboratory following Cardiolgy consultaton which recommended catheterization to evaluate for coronary artery disease.She was hospitalized with the new onset of heart failure symptoms including dyspnea and prominent orthopnea. She has improved with some diuresis. ECG shows nonspecific ST-T wave changes without Q-waves. Echocardiogram shows LV dysfunction with ejection fraction 20% to 25% and diffuse LV hypokinesia without discrete wall motion defects. Estimated PA pressure 41. Note four-chamber enlargement with moderate MR, and moderate TR. Note she does use ETOH daily. PROCEDURAL DETAILS: I met her on the marin prior to the procedure where I discussed the findings, impressions, and management considerations with her including the recommendation to proceed with coronary angiogram for definitive diagnosis and to guide treatment options including medical therapy or if indicated, PCI or coronary bypass surgery. We discussed the procedure including possible risks and complications. We discussed bleeding, infection, and blood clots; as well as injury to nerve, artery, vein or kidney; and also arrhythmia, drug reaction; or others. We discussed treatment as needed including transfusion, pacemaker, or surgery. We discussed more serious complications that are possible, including stroke, heart attack, cardiac arrest, and emergency surgery including transfer for coronary bypass surgery. After questions and discussion , she signed informed consent to proceed. She was brought to the Catheterization Laboratory NPO where she was prepped sterilely and draped. RIGHT HEART CATHETERIZATION: Arterial access was first obtained in the right common femoral vein using lidocaine local anesthesia; fluoroscopic localization over the femoral head; and modified Seldinger technique to insert an 8-Belarusian, 10 cm side-arm sheath. Then arterial access was obtained without difficulty in the right common femoral artery using similar technique. RFA catheters were advanced and exchanged over a long 0.035 inch J-tipped guidewire. A 7 cm balloon-tipped flow-directed Humptulips-Simone catheter was advanced without difficulty to the right PA wedge position. Right heart pressures were measured sequentially on pullback; and cardiac output was measured by both Sanjay technique and thermodilution. The right heart catheter was then removed. CORONARY ANGIOGRAM: The left coronary artery was imaged with a 6-Belarusian, JL-4 diagnostic catheter. The right coronary artery was imaged with a 6-Belarusian, JR-4 catheter. LHC: The catheter crossed the aortic valve into the left ventricle where pressure measurements were made. No LV angiogram was done. Procedure without difficulty. Patient tolerated procedure well. No complication. A side-arm sheath angiogram shows adequate access in the RFA for a closure device; and arterial hemostasis was obtained without difficulty using a 6-Belarusian StarClose clip. The RFV Sheath was removed using manual pressure. The patient was transferred in fully stable condition from the Catheterization Laboratory to the [facility] for post catheterization care including by the primary Hospitalist team. I discussed the procedure findings and recommendations with the patient and her ; as well as with Cardiology (Dr. Helm, and Dr. Hebert); and with the Hospitalist team (Dr. Vale). FINDINGS: 1. LMCA: Normal. The left main coronary artery is short and there are no obstructive lesions. 2. LAD: Normal. The left anterior descending coronary artery is a moderate to large-size transapical vessel with only small diagonal branches. 3. LCX: Normal. Left circumflex coronary artery distribution consists of one very large, high OM branch and a moderate-size distal LPLB. There are no obstructive lesions. 4. RCA: Dominant. Normal. The right coronary artery distribution is modest; and there are no obstructive lesions. 5. LHC: LVED 25 (pre A); and 34 (Z). No systolic gradient on pullback across the aortic valve. 6. RHC: PAW 15 (mean) A 18; and V 18. PA 35/17 (23 mean). RV 40/16. RA 15 (mean; note deep Y descent). FA 95% (O2 sat 95%). PA 43%(low). CARDIAC OUTPUT: Sanjay 2.77 (index 1.74). Thermodilution 2.37 (index 1.49). CONCLUSIONS: 1. Coronary Angiogram--Normal. Note only minimal evidence even of any coronary atherosclerotic plaquing. 2. Elevated right heart pressures including mild pulmonary hypertension, elevated wedge; elevated RA pressure; and low cardiac output. RECOMMENDATION: 1. Coronary artery disease is not the cause of her systolic cardiomyopathy. 2. OMT--Guideline-directed optimal medical therapy. MTDD
[2017-04-03] MEDS: predniSONE 20 mg Tablet PO SCH (14:33)
--- NOTE | 2017-04-03 16:09 | PCM.PNMED ---
Subjective Date of Service Apr 03, 2017 Subjective Patient was seen and examined at bedside today. Patient denies any chest pain, nausea, vomiting, diarrhea. Patient states that she is ready for her cath today but she does complain of some mild SOB. Overnight events: None Exam Vital Signs Vital Sign - Last Date Time Temp Pulse Resp B/P Pulse Ox O2 Delivery O2 Flow Rate FiO2 04/03/17 15:42 36.6 83 18 128/79 99 Room Air 04/02/17 13:10 2.00 Intake and Output 04/02/17 04/02/17 04/03/17 Cumulative From/Thru 15:00 23:00 07:00 03/31/17 13:17 - 04/03/17 06:08 Intake Total 1000 ml 20 ml 3000 ml Output Total 225 ml 2850 ml Balance 775 ml 20 ml 150 ml Intake Oral 500 ml 2450 ml IV Total 500 ml 20 ml 550 ml Output Urine Total 225 ml 2850 ml # Bowel Movements 0 Exam Physical Exam: GEN: Patient was awake, alert, responding appropriately to questions HEENT: Pupils equal round and reactive to light, extraocular eye muscles intact , Neck soft supple, trachea midline, nomocephalic/atraumatic CV: +S1/S2, regular rate and rhythm, no murmurs auscultated Respiratory: Positive wheezes, no rales or rhonchi GI: +bowel sounds x4, soft, compressible, nontender to palpation EXT: no clubbing, cyanosis, edema Neuro: Cranial nerves II-XII grossly intact Psych: mood and affect were appropriate IVs and Medications Medications Reviewed: Medications were reviewed in detail Lab and Diagnostics Result Diagram: 04/03/17 0500 04/03/17 0500 X-Rays, CTs and MRIs CT ANGIO CHEST PULMONARY EMBOLISM IMPRESSION: 1. No pulmonary emboli. 2. Small right-sided pleural effusion is of uncertain etiology. 3. Cardiomegaly and diffuse haziness throughout the lungs to be on the basis of pulmonary edema and clinical correlation is recommended. 4. No consolidated pneumonia. 5. Borderline prominent mediastinal lymph nodes. 6. Small hiatal hernia. 7. Left adrenal adenoma. Dictated by: Audie Duff M.D. on 03/31/2017 at 15:31 X-RAY CHEST, TWO VIEWS IMPRESSION: Blunting of the right costophrenic angle suggestive of scarring versus trace effusion. 9 mm nodular opacity is present within the right base as above. The latter is overall nonspecific and does not appear to be present on 03/15/17 exam. This could represent an area of focal fluid or developing airspace disease. Recommend interval followup is documented resolution. Dictated by: Nataliya Chung M.D. on 03/31/2017 at 14:12 Assessment & Plan Ms. Kamille Stevens is a 71 year old lady with a past history of RCC s/p right nephrectomy in 2006, untreated hepatitis C likely from blood transfusion 1978, benign adrenal tumor on the left side, and 30 year tobacco use at 1/2 pack per day, who presents to the [facility] with a several week history of shortness of breath, dyspnea on exertion, wheezing and decreased energy. She is admitted for possible SOB and chest pressure. Shortness of breath most likely secondary to systolic CHF exacerbation acute new onset. Present on admission. Active. -Troponins trended negative 2 -BNP elevated at 6348 on admission -Change to Lasix 40mg PO daily -Chest x-ray shows right-sided pleural effusion -Continue telemetry -Echo shows an EF of 20-25% with severe global hypokinesis - EKG reviewed, sinus tachycardia, LVH, no ST elevations/depression. -Continue carvedilol 3.125 mg twice a day -Decreased lisinopril 5 mg daily to 2.5 mg daily secondary to hypotension -Had cardiac cath today and it was reported that the patient did not have any occlusions and in the arteries -Cardiology following COPD exacerbation vs RAD's, vs CHF, less likely pneumonia. - CT Angio negative for PE - Procalcitonin mildly elevated at 0.12 - 40 mg Prednisone daily for 5 days. -Azithromycin 500 mg by mouth daily for 5 days - Xopenex nebs prn. [place], active, not present on admission -Secondary to high dose lasix -Decrease lasix to 40mg PO daily - continue to monitor Sinus Tachycardia. Present on admission. Active. - Continue Xopenex nebs when necessary - Tele on. - TSH 0.630 within normal limits Right sided pleural effusion. Present on admission. Active. - Possibly 2nd to residual right nephrectomy 2006 vs pneumonia vs CHF Elevated Transaminases, present on admission chronic - History of Hep C from blood transfusion. - Hepatitis panel ordered. HIV ordered. Hypomagnesemia, present on admission, resolved - 2G magnesium (8/18/17) -Currently stable magnesium is 2.0 Hypokalemia, active -40 mEq of potassium IV -40 mEq of potassium by mouth -Follow-up labs in the morning Acetaminophen for mild pain when necessary. Bowel regimen Senna and MiraLAX scheduled and PRN. Zofran when necessary for nausea and vomiting. SubQ heparin held for now. SCDs in place. High-risk medications: NONE. Disposition: The patient currently has CHF with an EF of 20-25%. The patient is starting to run a little hypotensive so her lisinopril 5 mg daily will be decreased to 2.5 mg daily. The patient had a cardiac cath today and her coronary arteries were not occluded. We will continue to wait for further recommendations from cardiology for the patient's home medication regimen. Patient is currently doing well and will most likely be able to be discharged home tomorrow. VTE Mechanical Devices: Intermittant Pneumatic CD Resuscitation Status: CPR: Attempt Resuscitation Antonieta Vale DO Apr 03, 2017 16:09
[2017-04-03] MEDS ORDERED: Atropine 1 mg/10 mL (Code) Syringe IVPUSH PRN (18:00)
[2017-04-03] MEDS ORDERED: 0.9% Sodium Chloride 250 ML BOLUS IV PRN (18:00)
[2017-04-03] MEDS ORDERED: Ondansetron 2 mg/mL 2 mL Inj IVPUSH PRN (18:00)
[2017-04-03] MEDS ORDERED: 0.9% Sodium Chloride 400 ML (4 HRS) IV ONE (18:00)
[2017-04-03] MEDS ORDERED: Sodium Chloride LOK Flush 10 mL Syringe IVFLUSH PRN (18:00)
--- NOTE | 2017-04-03 18:08 | PROG NOTE ---
[address] [address] PROGRESS NOTE PATIENT: EBER CALDERON : 1945 MR#: [id number] ADMIT: 03/31/2017 JOB ID: [id number] DATE: 04/03/2017 SUBJECTIVE: Overnight, the patient says she is feeling better. She says mild shortness of breath. This morning, she underwent cardiac catheterization which demonstrated no evidence of obstructive disease but reduced cardiac output and elevated filling pressures. Her pulmonary artery wedge pressure was 15, cardiac output was 2.37 L/minute. PHYSICAL EXAMINATION: Vital signs reviewed. Thin woman. No apparent distress. Eyes: No scleral icterus. Neck is supple. No carotid bruits. Heart: Normal S1, S2. No murmurs. Lungs: Clear to auscultation with the exception of right lung base which showed crackles. Abdomen: Soft. Positive bowel sounds. Extremities: Warm, well perfused. No clubbing, cyanosis, or edema. Skin: No rashes or lesions. Right common femoral artery vascular access site is clean, dry and intact with no ecchymosis and no bruits. RADIOLOGY: Her chest x-ray shows cardiomegaly and blunting of the right costophrenic angle as of March 31, 2017 compared to prior study January 28, 2010. MEDICATIONS: Reviewed. ASSESSMENT AND PLAN: In summary, this is a delightful 71-year-old woman with acute decompensated heart failure. The plan for this patient is to continue cardiac meds including beta tamara, REYNA inhibitor, loop diuretic with gradual initiation of aldosterone receptor tamara. Patient educated regarding critical lifestyle change program, adherence to a low-sodium diet, avoidance of alcohol and reducing caffeinated beverages to no more than two beverages per day. She will follow up with Dr. Helm's physician assistant store leader in about two weeks and follow up with Dr. Helm in about 6-8 weeks. Thank you very much for the opportunity to evaluate this patient. I anticipate she will be ready to be discharged tomorrow.
--- NOTE | 2017-04-03 18:44 | NUR ---
Left unit RN notified that Pt was to have heart cath at 1130 today, labor trainer called and on the way to picking crew supervisor Pt at ~0944, Pt unable to receive am medication prior to leaving the floor, labor trainer staff made aware. Pt's VSS on RA prior to leaving for labor trainer and after returning from [facility] at ~1414. Pt's groin site stable, Pt reporting pain in back, Pt given PRN tylenol by [facility], Pt given heat pack and ambulated, Pt reported pain resolved.
[2017-04-03] MEDS: Ipratropium 0.02% 0.5 mg/2.5 mL Inhalation Solution NEB PRN (19:09)
[2017-04-04 00:47] VITALS: BP 128/88; PULSE 76; RESP 18; O2SAT 98
[2017-04-04] MEDS: Sodium Chloride LOK Flush 10 mL Syringe IVFLUSH SCH ×3 (00:53→08:30)
--- NOTE | 2017-04-04 03:51 | NUR ---
Pain/SOB Pt c/o mild generalized pain; Tylenol administered, effective. Pt had mild intermittent SOB, requested neb treatment; effective. Pt denied chest pain, n/v. Slept most of the night, pleasant and cooperative with care.
[2017-04-04 05:30] VITALS: BP 136/93; PULSE 84; RESP 18; O2SAT 99
[2017-04-04 05:54] LABS: Mean Corpuscular Hemoglobin 30.9 pg (27.0-35.0); Mean Corpuscular Volume 90.3 fL (81-100)
[2017-04-04] MEDS: predniSONE 20 mg Tablet PO SCH (09:28)
[2017-04-04 09:35] VITALS: BP 142/87; PULSE 89; RESP 18; O2SAT 99
[2017-04-04 10:36] VITALS: PULSE 92
[2017-04-04] MEDS ORDERED: LEVA15HF5 IH (10:38)
[2017-04-04] MEDS ORDERED: FURO40TA4 PO (10:38)
[2017-04-04] MEDS ORDERED: LISI-571 PO (10:38)
[2017-04-04] MEDS ORDERED: NIC7 TOPICAL (10:38)
[2017-04-04] MEDS ORDERED: CARV3.122 PO (10:38)
--- NOTE | 2017-04-04 10:43 | NUR ---
Social Work-discharge: Data:EMR reviewed. Pt is on day 4 of hospitalization for shortness of breath per H&P. Pt is medically stable for discharge. During morning rounds, no concerns noted from RN or MD regarding pt's capacity for self care. Pt has been up independent in her room. No anticipated discharge needs. All updated and agreeable to plan. Assessment:Pt who is independent at baseline. Plan:Pt to discharge home today via POV. No anticipated discharge needs. All updated and agreeable to plan. VIOLA Olmstead
--- NOTE | 2017-04-04 10:48 | PCM.DIMED ---
Discharge Instructions Date of Service Apr 04, 2017 Dates of Hospitalization Mar 31, 2017 at 19:08 Discharge Diagnosis Discharge Diagnosis New onset acute CHF systolic Possible underlying COPD Acute kidney injury Hypomagnesemia Hypokalemia Hyponatremia Medication Instructions Additional med instructions You have been prescribe Xopenex and you can take 1-2 puffs every 4 hours as needed for shortness of breath. Because your shortness of breath is usually in the evening you should take 1-2 puffs at dinnertime and then 1-2 puffs prior to going to bed. You have been prescribed carvedilol and you will take this twice a day You have been prescribed lisinopril and you will take this once a day You have been prescribed Lasix and you will take this in the morning if you take this medication later in the day you will have more urination into the night and this will disrupt your sleep Diet Discharge Diet: Heart Healthy (please limit her sodium intake to 2 g or less, please limit your caffeine intake to 16 ounces daily) Activity Discharge Activity: No restrictions Call your provider Call your provider for: Shortness of breath, Chest pain, Weakness (unilateral) Patient Instructions Follow-up plan At your follow-up appointment with Dr. Beltran you will need to have your sodium and potassium levels checked as some of your new medications can cause these levels to drop. Follow-up Provider: Gissell Beltran DO Follow-up with PCP in: 1 week (Please keep your already scheduled appointment for April 11) Provider: Hilario Helm MD Follow-up in: 6 weeks (The office will call you with an appointment. If you do not hear from them please call to schedule an appointment for the next 6-8 weeks [phone]) Antonieta Vale DO Apr 04, 2017 10:48
[2017-04-04 10:55] VITALS: PULSE 85; RESP 16; O2SAT 99
[2017-04-04] MEDS: Ipratropium 0.02% 0.5 mg/2.5 mL Inhalation Solution NEB PRN (10:55)
--- NOTE | 2017-04-04 13:48 | PCM.DC.MED ---
Discharge Summary Date of Service Apr 04, 2017 Dates of Hospitalization Date of Hospital Admission Mar 31, 2017 at 19:08 Date of Discharge: Apr 04, 2017 Providers: Admitting Physician: Esvin Beck DO Primary Care Physician: Vu Ly DO Attending Physician: Antonieta Vlae DO Diagnosis at Time of Discharge Diagnosis at Time of Discharge New onset acute CHF systolic Possible underlying COPD Acute kidney injury Hypomagnesemia Hypokalemia Hyponatremia Procedures XRay, CTs & MRIs CT ANGIO CHEST PULMONARY EMBOLISM IMPRESSION: 1. No pulmonary emboli. 2. Small right-sided pleural effusion is of uncertain etiology. 3. Cardiomegaly and diffuse haziness throughout the lungs to be on the basis of pulmonary edema and clinical correlation is recommended. 4. No consolidated pneumonia. 5. Borderline prominent mediastinal lymph nodes. 6. Small hiatal hernia. 7. Left adrenal adenoma. Dictated by: Audie Duff M.D. on 03/31/2017 at 15:31 X-RAY CHEST, TWO VIEWS IMPRESSION: Blunting of the right costophrenic angle suggestive of scarring versus trace effusion. 9 mm nodular opacity is present within the right base as above. The latter is overall nonspecific and does not appear to be present on 03/15/17 exam. This could represent an area of focal fluid or developing airspace disease. Recommend interval followup is documented resolution. Dictated by: Nataliya Chung M.D. 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 March 10 she arrived from vacation, traveling by car from [place]. Along the way, roughly March 06 in [facility], she noticed marked shortness of breath from baseline. March 15 she visited the Urgent care and was given prednisone, azithromycin, and albuterol. Her vitals were normal at that time. She felt better within a couple of days. At a 10 day follow up she again began feeling short of breath and was noted to be tachycardic. A CT angio was performed and found to be negative, but a right sided pleural effusion was noted. The patient was admitted for possible PNA vs COPD exacerbation. The patient was started on Azithromycin and prednisone. Patient also had an echo which showed the patient to have an EF of 20-25%. Cardiology was consulted and the patient was started on a beta tamara and lisinopril. The patient was started on 5mg of lisinopril but the patient started to become hypotensive and her lisinopril was decreased to 2.5mg daily. The patient was taken for a cath and it was normal. The patient should follow up with Dr. Helm in the next 6-8 weeks. Follow up: 1) Na and K as the patient has recently started lasix and lisinopril 2) F/u CXR as a 9mm nodular opacity was found Hospital Course Ms. 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 She is admitted for possible SOB and chest pressure. Shortness of breath most likely secondary to systolic CHF exacerbation acute new onset. Present on admission. Active. -Troponins trended negative 2 -BNP elevated at 6348 on admission -Change to Lasix 40mg PO daily -Chest x-ray shows right-sided pleural effusion -Continue telemetry -Echo shows an EF of 20-25% with severe global hypokinesis - EKG reviewed, sinus tachycardia, LVH, no ST elevations/depression. -Continue carvedilol 3.125 mg twice a day -Decreased lisinopril 5 mg daily to 2.5 mg daily secondary to hypotension -Had cardiac cath today and it was reported that the patient did not have any occlusions and in the arteries -Cardiology following COPD exacerbation vs RAD's, vs CHF, less likely pneumonia. - CT Angio negative for PE - Procalcitonin mildly elevated at 0.12 - 40 mg Prednisone daily for 5 days. -Azithromycin 500 mg by mouth daily for 5 days - Xopenex nebs prn. [place], active, not present on admission -Secondary to high dose lasix -Decrease lasix to 40mg PO daily - continue to monitor Sinus Tachycardia. Present on admission. Active. - Continue Xopenex nebs when necessary - Tele on. - TSH 0.630 within normal limits Right sided pleural effusion. Present on admission. Active. - Possibly 2nd to residual right nephrectomy 2007 vs pneumonia vs CHF Elevated Transaminases, present on admission chronic - History of Hep C from blood transfusion. - Hepatitis panel ordered. HIV ordered. Hypomagnesemia, present on admission, resolved - 2G magnesium (03/31/17) -Currently stable magnesium is 2.0 Hypokalemia, active -40 mEq of potassium IV -40 mEq of potassium by mouth -Follow-up labs in the morning Exam Vital Signs (Last) Date Time Temp Pulse Resp B/P Pulse Ox O2 Delivery O2 Flow Rate FiO2 04/04/17 10:55 85 16 99 Room Air 04/04/17 09:35 36.1 142/87 04/02/17 13:10 2.00 Exam Physical Exam: GEN: Patient was awake, alert, responding appropriately to questions HEENT: Pupils equal round and reactive to light, extraocular eye muscles intact , Neck soft supple, trachea midline, nomocephalic/atraumatic CV: +S1/S2, regular rate and rhythm, no murmurs auscultated Respiratory: Positive wheezes, no rales or rhonchi GI: +bowel sounds x4, soft, compressible, nontender to palpation EXT: no clubbing, cyanosis, edema Neuro: Cranial nerves II-XII grossly intact Psych: mood and affect were appropriate Test 03/31/17 14:40 03/31/17 21:30 04/01/17 05:26 04/02/17 06:00 D-Dimer < 0.50mg/L FEU (<0.50) Pro-B-Type Natriuretic Peptide 6348pg/mL (0-301) Thyroid Stimulating Hormone (TSH) 0.630uIU/mL (0.450-4.500) Hold Ramirez Top Tube Received (Received) Hepatitis A IgM Antibody Negative (Negative) Hepatitis B Surface Antigen Negative (Negative) Hepatitis B Core IgM Antibody Negative (Negative) Hepatitis C Antibody >11.0s/co ratio Hepatitis C Antibody Comment Comment (.) Hepatitis C Comment . HIV (1&2) Ag and Ab, 4th Generation Non reactive (Non Reactive) Iron Level 24ug/dL (35-150) Total Iron Binding Capacity 378ug/dL (250-450) Percent Iron Saturation 6%sat (15-50) Unsaturated Iron Binding 354.3ug/dL Ferritin 32ng/mL (13-150) Test 04/03/17 05:00 04/04/17 05:20 Neutrophils (%) (Auto) 68.1% (40-74) Lymphocytes (%) (Auto) 22.8% (14-46) Monocytes (%) (Auto) 8.6% (4-12) Eosinophils (%) (Auto) 0.2% (0-5) Basophils (%) (Auto) 0% (0-3) Magnesium Level 1.9mg/dL (1.6-2.6) Total Bilirubin 0.6mg/dL (0.0-1.2) Aspartate Amino Transf (AST/SGOT) 60U/L (0-50) Alanine Aminotransferase (ALT/SGPT) 53U/L (0-32) Alkaline Phosphatase 58U/L (25-165) Troponin T 0.010ug/L (0.0-0.011) Total Protein 6.1g/dL (6.4-8.4) Albumin 3.8g/dL (3.4-5.0) Procalcitonin 0.12ng/mL (0.00-0.08) White Blood Count 5.2th/mm3 (3.8-10.1) Red Blood Count 3.72mil/mm3 (3.90-5.20) Hemoglobin 11.5g/dL (12.0-15.6) Hematocrit 33.6% (35.0-46.0) Mean Corpuscular Volume 90.3fL (81-100) Mean Corpuscular Hemoglobin 30.9pg (27.0-35.0) Mean Corpuscular Hemoglobin Concent 34.2% (32.0-37.0) Red Cell Distribution Width 13.2% (12.3-15.4) Platelet Count 176bil/L (150-400) Sodium Level 129mEq/L (134-144) Potassium Level 4.6mEq/L (3.5-5.2) Chloride Level 93mEq/L (97-108) Carbon Dioxide Level 19mmol/L (18-29) Blood Urea Nitrogen 42mg/dL (8-27) Creatinine 1.05mg/dL (0.57-1.00) Estimat Glomerular Filtration Rate 74mL/min (>59) Glucose Level 138mg/dL (60-99) Calcium Level 9.1mg/dL (8.5-10.1) Discharge Medications Discharge Medications Carvedilol (Carvedilol) 3.125 Mg Tablet 3.125 MG PO BIDWM Prescribed by: ANTONIETA VALE DO Furosemide (Furosemide) 40 Mg Tablet 40 MG PO DAILY Prescribed by: ANTONIETA VALE DO Lisinopril (Lisinopril) 5 Mg Tablet 2.5 MG PO DAILY Prescribed by: ANTONIETA VALE DO Magnesium Oxide (Magnesium) 500 Mg Capsule 500 MG PO DAILY (Reported) Multivitamin (Once Daily) 1 Each Tablet 1 EACH PO DAILY (Reported) Nicotine 7 mg/24 hr Patch (Nicotine 7 mg/24 hr Patch) 1 Each Patch.td24 1 PATCH TOPICAL DAILY Prescribed by: ANTONIETA VALE DO As needed Levalbuterol Tartrate (Xopenex Hfa) 15 Gm Hfa.aer.ad 2 PUFF IH Q4 PRN PRN For Shortness of Breath Prescribed by: ANTONIETA VALE DO Additional med instructions You have been prescribe Xopenex and you can take 1-2 puffs every 4 hours as needed for shortness of breath. Because your shortness of breath is usually in the evening you should take 1-2 puffs at dinnertime and then 1-2 puffs prior to going to bed. You have been prescribed carvedilol and you will take this twice a day You have been prescribed lisinopril and you will take this once a day You have been prescribed Lasix and you will take this in the morning if you take this medication later in the day you will have more urination into the night and this will disrupt your sleep Followup Plan Follow-up plan At your follow-up appointment with Dr. Beltran you will need to have your sodium and potassium levels checked as some of your new medications can cause these levels to drop. Discharge Diet: Heart Healthy (please limit her sodium intake to 2 g or less, please limit your caffeine intake to 16 ounces daily) Discharge Activity: No restrictions Follow-up Provider: Gissell Beltran DO Follow-up with PCP in: 1 week (Please keep your already scheduled appointment for April 11) Provider: Hilario Helm MD Follow-up in: 6 weeks (The office will call you with an appointment. If you do not hear from them please call to schedule an appointment for the next 6-8 weeks [phone]) Time spent greater than 35 minutes copies to: Gissell Beltran DO; Hilario Helm MD, Precious L DO Apr 04, 2017 13:48 night and this will disrupt your sleep Followup Plan Follow-up plan At your follow-up appointment with Dr. Beltran you will need to have your sodium and potassium levels checked as some of your new medications can cause these levels to drop. Discharge Diet: Heart Healthy (please limit her sodium intake to 2 g or less, please limit your caffeine intake to 16 ounces daily) Discharge Activity: No restrictions Follow-up Provider: Gissell Beltran DO Follow-up with PCP in: 1 week (Please keep your already scheduled appointment for April 11) Provider: Hilario Helm MD Follow-up in: 6 weeks (The office will call you with an appointment. If you do not hear from them please call to schedule an appointment for the next 6-8 weeks [phone]) Antonieta Vale DO Apr 04, 2017 13:48
--- NOTE | 2017-04-04 17:39 | NUR ---
Discharge Patient departed unit via wheelchair, accompanied by staff and spouse. Patient alert and oriented at time of discharge. Patient denied: chest pain/discomfort, nausea, or pain prior to discharge. Patient reporting felling continued shortness of breath with new CHF diagnosis. Hospitalist added inhalers to discharge meds. Discharge instructions/medications, reviewed with patient prior to discharge. All questions addressed. Discharge instructions, patient belongings and prescriptions in hand. Patient verbalized understanding of discharge instructions.
== END 2017-04-04 12:08 | disposition home or self-care (01) | DRG 287 ==
LOC: SED 13:14 → MPC 19:01 → OBSVTOIN 19:08
PROVIDERS: ADMIT Internal Medicine; ATTEND Internal Medicine
PROC: 4A023N8 Measurement of Cardiac Sampling and Pressure, Bilateral, Percutaneous Approach (ICD-10-PCS; principal; 2017-04-03)
PROC: B2111ZZ Fluoroscopy of Multiple Coronary Arteries using Low Osmolar Contrast (ICD-10-PCS; 2017-04-03)
PROC: 4A033BC Measurement of Arterial Pressure, Coronary, Percutaneous Approach (ICD-10-PCS; 2017-04-03)
DX: I50.23 Acute on chronic systolic (congestive) heart failure (principal); I42.0 Dilated cardiomyopathy; I24.8 Other forms of acute ischemic heart disease; N17.9 Acute kidney failure, unspecified; Z87.891 Personal history of nicotine dependence; Z85.528 Personal history of other malignant neoplasm of kidney; Z90.5 Acquired absence of kidney; E83.42 Hypomagnesemia; E87.6 Hypokalemia; J44.9 Chronic obstructive pulmonary disease, unspecified